=== PATIENT | female | born 1980 | race Caucasian/White ===

== ENCOUNTER → 2018-10-27 | Outpatient (CLI) | payer BC ==
[~2018-10-27] MED LIST: ALPR2TAB2 PO; DOCU100C37 PO; IBUP-1780 PO; METO-387; METR-145; NITR-65 PO; NITR100C10; OXYC-465 PO; VENL150C PO; VENL75CA PO
--- NOTE | 2018-10-27 14:20 | Diagnostic Imaging Report ---
INDICATION: Hypothyroidism TECHNIQUE: Grayscale sonographic images of the thyroid gland. CORRELATION STUDY: None FINDINGS: RIGHT LOBE: 4.2 x 1.2 x 1.7 cm. There is normal echotexture about the right lobe. LEFT LOBE: 3.6 x 1.4 x 1.4 cm. There is normal echotexture about the left lobe. Isthmus appears unremarkable. IMPRESSION: Unremarkable appearing thyroid ultrasound examination. (Normal gland size: 4-5 x 2 x 2 cm) Dictated by: Dictated on workstation # [id number]
== END ==
LOC: RAD 12:17
PROVIDERS: ATTEND Nurse Practitioner
DX: E03.9 Hypothyroidism, unspecified (principal)
CPT/HCPCS: 76536

== ENCOUNTER → 2022-05-23 | Outpatient (CLI) | payer BC ==
[~2022-05-23] MED LIST changes: -METO-387; +MTP25TSR; -OXYC-465 PO; +OXYC-556 PO; -VENL150C PO; +VENL150C3 PO
--- NOTE | 2022-05-23 10:26 | Diagnostic Imaging Report ---
INDICATION: Routine screening. Comparison is made with prior mammogram from 11/17/2014. 2-D and 3-D bilateral screening mammography was performed with CAD. Scattered fibroglandular densities are identified bilaterally. The parenchymal pattern is stable. No mass or malignant-appearing microcalcifications are seen. There are benign calcifications bilaterally. Axillae are unremarkable. IMPRESSION: No mammographic features suspicious for malignancy are identified. ACR BI-RADS Category 2: Benign findings. Result letter will be mailed to the patient. Note: At least 10% of breast cancer is not imaged by mammography. BI-RADS Category 2 Dictated by: Dictated on workstation # [id number]
== END ==
LOC: RAD 07:55
PROVIDERS: ATTEND Family Medicine
DX: Z12.31 Encounter for screening mammogram for malignant neoplasm of breast (principal)
CPT/HCPCS: 77063; 77067